=== PATIENT | male | born 1985 | race Two or more races ===

== ENCOUNTER 2017-07-01 09:18 | Day surgery (SDC) | payer OTHER ==
[2017-07-01] MEDS: LR 1,000 ML IV (09:55)
[2017-07-01] MEDS ORDERED: LIDOCAINE 2% INJ 100 MG/5 ML SDV (FOR ANES.) As Ordered (10:10)
[2017-07-01] MEDS ORDERED: PROPOFOL 200 MG/20 ML VIAL As Ordered (10:10)
[2017-07-01] MEDS ORDERED: fentaNYL 100 MCG/2 ML INJECTION (J3010) As Ordered (10:11)
[2017-07-01] MEDS ORDERED: MIDAZOLAM INJ 2 MG/2 ML VIAL (J2250) As Ordered (10:11)
[2017-07-01] MEDS ORDERED: BACITRACIN OINT 30GM As Ordered (11:47)
[2017-07-01] MEDS ORDERED: LIDOCAINE 1% SDV INJ 30 ML VIAL As Ordered (11:47)
[2017-07-01] MEDS ORDERED: BUPIVACAINE HCL 0.25% 30 ML VIAL As Ordered (11:47)
[2017-07-01] MEDS ORDERED: ONDANSETRON 4MG/2ML VIAL (J2405) As Ordered (12:32)
[2017-07-01] MEDS ORDERED: dexameTHASONE 4 MG/ML 1ML VIAL (J1100) As Ordered (12:32)
[2017-07-01] MEDS ORDERED: KETOROLAC 60 MG/2 ML VIAL (J1885) As Ordered (12:32)
[2017-07-01] MEDS ORDERED: fentaNYL 100 MCG/2 ML INJECTION (J3010) IV (13:45)
[2017-07-01] MEDS ORDERED: ONDANSETRON 4MG/2ML VIAL (J2405) IV (13:45)
[2017-07-01] MEDS ORDERED: LR 1,000 ML IV (13:45)
[2017-07-01] MEDS ORDERED: PERCOCET 5MG/325MG TAB PO (13:45)
[2017-07-01] MEDS ORDERED: ACETAMINOPHEN 650MG ER TAB (TYLENOL ARTHRITIS) PO (14:00)
[2017-07-01] MEDS ORDERED: CIPROFLOXACIN 500 MG TAB PO (18:00)
== END 2017-07-01 15:50 | disposition home or self-care (01) ==
LOC: M SDC 09:18
DX: N47.1 Phimosis (principal); N48.1 Balanitis; N47.7 Other inflammatory diseases of prepuce; D55.0 Anemia due to glucose-6-phosphate dehydrogenase [G6PD] deficiency; Z72.0 Tobacco use
CPT/HCPCS: 54161